=== PATIENT | male | born 1950 | race Caucasian/White ===

== ENCOUNTER 2023-04-25 10:13 | Emergency (ER) | payer OTHER ==
[~2023-04-25] VITALS: Ht 180.3 cm; Wt 99.8 kg
[2023-04-25 10:30] VITALS: BP 157/69; PULSE 96; RESP 20
[2023-04-25] MEDS ORDERED: IBUPROFEN 800 MG TAB PO ONE (11:00)
[2023-04-25] MEDS ORDERED: DEXAMETHASONE SOD PHOSPHATE 4 MG/ML 1ML VIAL IM ONE (11:00)
[2023-04-25] MEDS ORDERED: OMEP40CA21 PO (12:17)
[2023-04-25] MEDS ORDERED: METH4TAB3 PO (12:17)
[2023-04-25] MEDS ORDERED: IBUP-2077 PO (12:17)
== END 2023-04-25 12:32 | disposition home or self-care (01) ==
LOC: EDH 10:13
DX: M17.12 Unilateral primary osteoarthritis, left knee (principal)
CPT/HCPCS: 99283; 84550; 36415; 73562; 96372; J1100